=== PATIENT | male | born 1935 | race Caucasian/White ===

== ENCOUNTER 2017-03-09 11:02 | Inpatient (IN) | payer MEDICARE, BC ==
[~2017-03-09] VITALS: Ht 185.4 cm; Wt 86.0 kg
--- NOTE | ~2017-03-09 | OR ---
ADMIT: 03/09/2017 RM/LOC: 503 [facility] MR#: [id number] [address] [address] TOMASA LEA [address] [place] [place] [address] Operative/Delivery Room Report SEX: M AGE: 81 : 1935 SURGERY DATE: 03/09/2017 SURGEON: Daniel Olivarez MD PREOPERATIVE DIAGNOSIS: Left intertrochanteric hip fracture. POSTOPERATIVE DIAGNOSIS: Left intertrochanteric hip fracture. PROCEDURE: Left hip open reduction and internal fixation. Trochanteric femoral nailing. HEAD PAPER TESTER: None. ANESTHESIA: General. COMPLICATIONS: None. BLOOD LOSS: 25 mL. COMPONENTS: 1. 130 degree x 12 mm Synthes TFN nail. 2. A 110 spiral blade. 3. A 40 mm locking bolt. DESCRIPTION OF PROCEDURE: The patient was taken to the operating room, received a general anesthetic. He was placed on a fracture table. Left leg placed in traction, right leg abducted out of the field. At that point, a closed reduction was performed. Using AP and lateral fluoroscopic images, the hip was then prepped and draped in a standard fashion. An incision was made above the tip of the trochanter. We divided the deep fascia. Placed a guide pin through the tip of the trochanter down the medullary canal. Using a ADMIT: 03/09/2017 RM/LOC: 503 [facility] MR#: [id number] [address] [address] TOMASA LEA [address] [place] [address] Operative/Delivery Room Report SEX: M AGE: 81 : 1935 trochanteric reamer opened up the proximal femur. We then placed 130 degree x 12 mm Synthes nail down the medullary canal. We then used the external jig. Made an incision on the lateral thigh. Placed a guide pin into the center of the femoral head on AP lateral images. Reamed the lateral cortex, impacted 110 mm spiral blade with good purchase. We then locked it proximally after compressing the fracture site. We then placed a 40 mm locking bolt distally with the external jig with no undue difficulty. At that point, removed the external jig. AP and lateral images confirmed good placement of all hardware, good fracture reduction. We irrigated out the wounds. Closed the deep tissue with 0 Vicryl, subcutaneous with 2-0 Vicryl, gabriela in the skin. Applied sterile dressings. He has taken to recovery room in stable condition. No complications. Daniel Olivarez MD/ tiffany JOB #: [id number] CC: Vic Yoon, Attending Physician Vic Yoon, Family Physician
--- NOTE | 2017-03-10 08:23 | ER ---
ADMIT: 03/09/2017 RM/LOC: ER [facility] MR#: [id number] 2620 [facility] [address] [place] [phone] TOMASA LEA [address] [facility] [place] [address] [facility] Emergency Room Report SEX: M AGE: 81 : 1935 DATE: 03/09/2017 TIME: 1102 hours. PRIMARY CARE: Ranjith Nix MD in [place]. Please refer to my T-sheet for complete H and P. HISTORY OF PRESENT ILLNESS: Briefly, the patient is an 81-year-old, who comes in with left hip pain. He has a history of dementia. His takes care of him at home. He actually does very well, but he got up out of a wheelchair when she was not there and fell. She came in and said he is complaining of pain. He is unable to give a very good history. PHYSICAL EXAMINATION: VITAL SIGNS: Vital signs are stable. HEENT: No neck pain. LUNGS: Clear. HEART: Regular. ABDOMEN: Soft. SKIN: No rash. EXTREMITIES: He has severe pain on left hip with any motion. EMERGENCY DEPARTMENT COURSE: His x-ray of his left hip and pelvis revealed a left intertrochanteric hip fracture. At this point, I talked to Dr. Olivarez. We established an IV. We did an EKG and lab work. I talked to Dr. Yoon. He will admit to the hospital. He had eaten this morning. ASSESSMENT: 1. Left hip fracture, intertrochanteric. 2. Fall. 3. Dementia. PLAN: Admit to the hospital. Keegan Ferreira MD/ tiffany JOB #: [id number] CC: Keegan Ferreira MD, Attending Physician
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
[2017-03-15] MEDS ORDERED: CARBIDOPA-LEVO1 EAC6 PO (19:16)
[2017-03-15] MEDS ORDERED: CELEXA40 MG PO (19:16)
[2017-03-15] MEDS ORDERED: SEROQUEL25 MG PO ×2 (19:17)
[2017-03-15] MEDS ORDERED: MIRALAX PACKET17 GM PO (19:17)
[2017-03-15] MEDS ORDERED: BENADRYL-DPS25 MG PO (19:18)
[2017-03-15] MEDS ORDERED: COLACE-DPS100 MG PO (19:18)
[2017-03-15] MEDS ORDERED: MAALOX DPS30 ML PO (19:18)
[2017-03-15] MEDS ORDERED: SENOKOT S1 TAB PO (19:18)
[2017-03-15] MEDS ORDERED: TYLENOL DPS325 MG PO (19:19)
[2017-03-15] MEDS ORDERED: MILK OF MA400 MG/5 M PO (19:19)
[2017-03-15] MEDS ORDERED: TYLENOL EXTRA500 M1 PO (19:19)
[2017-03-15] MEDS ORDERED: NORCO 5-325 TA1 EACH PO (19:20)
--- NOTE | 2017-03-21 07:57 | DS ---
ADMIT: 03/09/2017 RM/LOC: 503 [facility] MR#: [id number] 2620 [facility] [address] [place] [phone] RIYA LEA [address] [facility] [place] [address] General Discharge Summary SEX: M AGE: 81 : 1935 ADMISSION DATE: 03/09/2017 DISCHARGE DATE: 03/13/2017 ADMITTING DIAGNOSIS: Intertrochanteric fracture, left hip. DISMISSAL DIAGNOSIS: Intertrochanteric fracture, left hip. COMPLICATING DIAGNOSES: 1. Dementia. 2. Hearing loss. 3. Osteoarthritis. 4. Possible Parkinson's. 5. History of traumatic brain injury. CHIEF COMPLAINT AND HISTORY OF PRESENT ILLNESS: This 81-year-old male, lives at home with his . He has problems with dementia. He got out of his wheelchair when his was not looking. He fell to the floor injuring his hip. He came in, x-ray showed intertrochanteric fracture of left hip. Dr. Olivarez, Orthopedics was consulted and plan on doing a transfemoral nail once he had been kept n.p.o. for several hours. PAST MEDICAL HISTORY: Please see H and P for details. LABORATORY REPORTS: See lab summary sheets. Hemoglobin prior to dismissal was 7.9. Hemoglobin on admission was 10.5. UA was unremarkable. Electrolytes prior to dismissal; sodium 143, potassium 4.0, chloride 108, CO2 of 29, BUN 16, creatinine 0.7, and glucose 131. Urine culture showed no growth. X-ray showed intertrochanteric fracture, left hip. Chest x-ray showed increased interstitial markings, probable fibrosis, possibly mild edema. EKG showed normal sinus rhythm. PROCEDURES: March 09, open reduction and internal fixation of left hip with trochanteric femoral nailing. COURSE IN HOSPITAL: Riya was admitted, evaluated, and okayed for surgery. Had transfemoral nail placed postoperatively. His vitals were stable. He did well other than his dementia. He was confused and somewhat combative. He was placed on Ancef for prophylaxis and this was continued until urine culture came back negative. Recently had a UTI, social service was consulted. Family ADMIT: 03/09/2017 RM/LOC: 503 [facility] MR#: [id number] 2620 [facility] [address] [place] [phone] RIYA LEA [address] [place] [address] General Discharge Summary SEX: M AGE: 81 : 1935 plans on taking him back home. He did have a hospital bed and Lydia lift at home. He did develop postop anemia, he was transfused 1 unit of packed red blood cells. Hemoglobin dropped to 6.9 prior to transfusion. At time of dismissal. He was sent home on: 1. Celexa 20 mg daily. 2. MiraLax 17 g daily. 3. Senokot-S 1 tablet b.i.d. 4. Seroquel 25 mg b.i.d. and 50 mg at bedtime. 5. Sinemet 25/100, 1/2 tablet daily. 6. P.r.n. Benadryl, Colace, milk of magnesia, and Tylenol. They will follow up with their regular physician in 1-2 weeks. He continued to be a DNR/DNI. He is to have a CBC and BMP in 1-2 weeks. Vic Yoon MD/ marandal JOB #: [id number] CC: Vic Yoon MD, Attending Physician Vic Yoon MD, Family Physician
== END 2017-03-13 11:29 | disposition home health service (06) | DRG 481 ==
LOC: ER 11:02 → 5MS 11:48
PROVIDERS: ADMIT Family Medicine
PROC: 0QS706Z Reposition Left Upper Femur with Intramedullary Internal Fixation Device, Open Approach (ICD-10-PCS; principal; 2017-03-09)
PROC: 30233N1 Transfusion of Nonautologous Red Blood Cells into Peripheral Vein, Percutaneous Approach (ICD-10-PCS; 2017-03-12)
DX: S72.142A Displaced intertrochanteric fracture of left femur, initial encounter for closed fracture (principal); F02.81 Dementia in other diseases classified elsewhere, unspecified severity, with behavioral disturbance; G20 Parkinson's disease; D62 Acute posthemorrhagic anemia; W05.0XXA Fall from non-moving wheelchair, initial encounter; I44.0 Atrioventricular block, first degree; H91.90 Unspecified hearing loss, unspecified ear; Z96.612 Presence of left artificial shoulder joint; Z82.49 Family history of ischemic heart disease and other diseases of the circulatory system; Z87.820 Personal history of traumatic brain injury; Z66 Do not resuscitate